=== PATIENT | female | born 1990 | race Caucasian/White ===

== ENCOUNTER → 2018-08-24 | Outpatient (REF) | payer OTHER | LOC: M SFHCLERA 10:33 | PROVIDERS: ATTEND Physician Assistant | DX: J02.9 Acute pharyngitis, unspecified (principal) ==

== ENCOUNTER → 2019-01-07 | Outpatient (REF) | payer OTHER | LOC: M SFHCLERA 16:37 | PROVIDERS: ATTEND Nurse Practitioner Family | DX: R50.9 Fever, unspecified (principal) ==

== ENCOUNTER 2019-09-09 19:05 | Inpatient (IN) | payer OTHER ==
[~2019-09-09] VITALS: Ht 160 cm; Wt 77.4 kg
[2019-09-09 19:27] VITALS: BP 118/74
[2019-09-09] MEDS ORDERED: PROMETHAZINE INJ 25 MG/ML VIAL (J2550) IV ONE (19:45)
[2019-09-09] MEDS ORDERED: BUTORPHANOL 2 MG/ML INJ (J0595) IV PRN (19:45)
[2019-09-09] MEDS ORDERED: miSOPROStol 50 MCG 1/2 TAB (S0191) PO SCH (20:00)
[2019-09-09 20:15] LABS: BASO % 0.3 % (0.0-1.0); EOS # 0.1 10^3/uL (0.0-0.5); EOS % 0.8 % (0.0-3.0); HEMATOCRIT 30.1 % (36.0-47.0); HEMOGLOBIN 9.7 g/dl (12.0-15.5); LYMPH # 2.3 10^3/uL (1.5-5.0); LYMPH % 20.3 % (24.0-44.0); MEAN CORPUSCULAR HEMOGLOBIN 28.1 pg (27.0-33.0); MEAN CORPUSCULAR HGB CONC 32.2 g/dl (32.0-36.5); MEAN CORPUSCULAR VOLUME 87.2 fl (80.0-96.0); MONO % 8.8 % (0.0-5.0); NEUTROPHILS # 7.5 10^3/uL (1.5-8.5); NEUTROPHILS % 67.8 % (36.0-66.0); PLATELET COUNT, AUTOMATED 266 10^3/uL (150-450); RED BLOOD COUNT 3.45 10^6/uL (4.00-5.40); WHITE BLOOD COUNT 11.1 10^3/uL (4.0-10.0)
[2019-09-09 20:40] VITALS: BP 111/62
[2019-09-09] MEDS ORDERED: PRENTAB9 PO (20:51)
[2019-09-09 22:00] VITALS: BP 103/66
--- NOTE | 2019-09-09 22:46 | HPEPDOC ---
Obstetrical History & Physical General Date of Admission September 09, 2019 at 19:05 History of Present Illness Noemi is a 29yo with SIUP at 39w3d by lmp c/w 8wk u/s who presents for scheduled (elective) IOL today. No complaints. No LOF/vaginal bleeding/regular ctx. Feels good movement. Chief Complaint: Induction of labor Information Provided By: Patient Care Care: Good Care Dating Final EDC: September 13, 2019 Final EDC by: LMP, 1st trimester (US) Antepartum Course Diagnos(e)s elevated 1hr glucola (136) with normal 3hr GTT Height (inches): 63 Pre- weight (lbs.): 135 Admission Weight (lbs.): 170 Change in Weight (lbs.): 35 Past Medical History Past Obstetrical History : Past Obstetrical History: Multigravida (03/21/15 uncomplicated 39wk [id number] M, 01/24/18 uncomplicated 39wk [id number] M, 02/2017 sab) [employer] History: No pertinent history Past Medical History Medical History Benign Surgical History: [place] teeth, Other (Laparoscopic ovarian cystectomy x2, breast tissue removal) Family History Significant Family History: No pertinent family hx Social History Marital Status: Family situation: Spouse/partner home Psychosocial History: No pertinent psych hx * Smoker: non-smoker Alcohol: Denies Drugs: denies Imunizations Tdap status: current Influenza Status: current Allergies Coded Allergies: shellfish derived (Verified Allergy, Severe, ANAPHYLAXIS, 09/09/19) Medications Scheduled No.137/Iron/Folic Acd ( Vitamin Tablet) 1 Each Tablet, 1 TAB PO DAILY Physical Examination Physical Examination GENERAL: Alert and oriented times three. ABDOMEN: Gravid and non-tender to touch. FETUS: Is vertex (VTX) by sterile vaginal examination (SVE) EXTREMITIES: No edema of BLE Vital Signs/I&O Vital Signs Date Time Temp Pulse Resp B/P (MAP) Pulse Ox O2 Delivery O2 Flow Rate FiO2 09/09/19 20:40 94 111/62 (78) 09/09/19 19:27 98.1 16 Laboratory Data 24H LABS Laboratory Tests 2 09/09/19 19:11: Serology Scanned Report Hepatitis B Testing 09/09/19 20:05: Immature Granulocyte % (Auto) 2.0, Neutrophils (%) (Auto) 67.8H, Lymphocytes (%) (Auto) 20.3L, Monocytes (%) (Auto) 8.8H, Eosinophils (%) (Auto) 0.8, Basophils (%) (Auto) 0.3, Neutrophils # (Auto) 7.5, Lymphocytes # (Auto) 2.3, Monocytes # (Auto) 1.0H, Eosinophils # (Auto) 0.1, Basophils # (Auto) 0.0, Nucleated Red Blood Cells % (auto) 0.0 CBC/BMP Laboratory Tests 09/09/19 20:05 Pertinent Laboratoy Data Blood Type: O+ RBC Antibody Screen: Negative HIV: Negative Hepatitis B: Negative Hepatitis C: Unknown Rapid Plasma Reagin: Nonreactive Rubella: Immune Varicella: Immune Chlamydia/Gonorrhea: Negative Group B Streptococcus: Negative Quad Screen Test: Negative Cystic Fibrosis: Negative Glucose Tolerance Test: 136 (93/139/91/85) Anatomy Ultrasound Ultrasound Date: Apr 26, 2019 Placenta Location: Posterior Normal Anatomy: Yes Placenta Previa: No Steroid Therapy Steroid Therapy: No Vaginal Examination Dilation: 3 cm Effacement: 50% Station: -3 Cervical Consistency: Medium Cervical Position: Middle Presentation: Cephalic presentation Assessment Heart Rate (FHR): 145 Variability: Moderate Accelerations: Positive Decelerations: None Tocometer Contractions: Yes Frequency: irregular Strength: palpated as mild Assessment/Plan Assessment Noemi is a 29yo with SIUP at 39w3d by lmp c/w 8wk u/s who presents for scheduled (elective) IOL today. Vitals wnl, benign exam. SCE /-3, no ctx pattern. Cat I FHRT. Cephalic by SCE. GBS neg. PMhx/PNC significant for: elevated 1hr glucola (136) with normal 3hr GTT Plan Admit and orient. Proof Tester and consent. Diet: clear liquids Group B Streptococcus (GBS) negative Labs and intravenous (IV) per unit protocol. Counseled on cytotec, Pitocin and induction of labor (IOL). Saline lock IV for now Cytotec 50mcg PO Q4hr prn until good ctx pattern obtained with discomfort Candidate for epidural in active labor, IV stadol/phenergan in latent labor if desired Anticipate normal spontaneous delivery () MD Adelaide Huynh Katrina D MD September 09, 2019 22:46
[2019-09-10] VITALS (31 sets, daily range): BP systolic 98–139; BP diastolic 55–93
[2019-09-10] MEDS ORDERED: FENTANYL 2MCG/ML ROPIVACAINE 0.2% IN 0.9% NACL 100ML IVBAG As Ordered ONE (02:33)
[2019-09-10] MEDS ORDERED: OXYTOCIN 30 UNITS IN 0.9% NaCl 500ML IV BAG (J2590) As Ordered ONE (02:34)
[2019-09-10] MEDS ORDERED: EPIDURAL COMMENT XX SCH (04:15)
[2019-09-10] MEDS ORDERED: EPIDURAL/PCA KEYS XX PRN (04:15)
[2019-09-10] MEDS ORDERED: REFRIGERATOR IV KEYS XX PRN (04:15)
[2019-09-10] MEDS ORDERED: diphenhydrAMINE 50MG/ML VIAL (J1200) IV PRN (04:15)
[2019-09-10] MEDS ORDERED: ONDANSETRON 4MG/2ML VIAL IV PRN (04:15)
[2019-09-10] MEDS ORDERED: LACTATED RINGER'S 1000 ML IV PRN (04:15)
[2019-09-10] MEDS ORDERED: FENTANYL/ROPIVACAINE/NACL BAG 100 ML EPIDURAL SCH (04:15)
[2019-09-10] MEDS ORDERED: ePHEDrine SULFATE 25 MG/5 ML(5MG/ML) SYRINGE IV PRN (04:15)
[2019-09-10] MEDS ORDERED: NALOXONE INJ 0.4MG/1ML VIAL (J2310 PER 1MG) IV PRN (04:15)
[2019-09-10] MEDS ORDERED: OXYTOCIN DRIP 30 UNITS in IV 1 EA IV SCH (04:52)
--- NOTE | 2019-09-10 04:58 | DNPDOC ---
[facility] Delivery Note Delivery Note DATE OF DELIVERY: 10 Sep 2019 PREDELIVERY DIAGNOSIS: 39w4d social IOL POST DELIVERY DIAGNOSIS: Delivered. PROCEDURE: Spontaneous vaginal delivery ROLL UP HELPER: Dr. Nidia Bryson MD ANESTHESIA: epidural ESTIMATED BLOOD LOSS: 200 mL. FINDINGS: (weight pending at time of note writing, see infant documentation) Female , Score 9/9, nuchal cord times 1 DELIVERY SUMMARY: Noemi is a 29yo [id number] s/p uncomplicated at 0436 on 09/10/19 after undergoing social IOL at 39w4d. She received one dose of oral cytotec and advanced into labor with no further augmentation. She received an epidural, had SROM with meconium stained fluid at 9cm and progressed to C/C/+2 at which point she began pushing. With one set of pushes, infant's head delivered OA, restituted EH. One nuchal cord reduced. Right anterior shoulder delivered with ease followed by posterior shoulder (there was right compound hand), then remainder of body delivered to maternal abdomen where infant was dried and stimulated; nose and mouth suctioned with bulb suction, strong, lusty cry, apgars 9/9. At 2 minutes of life, cord clamped x2 and cut by FOB. Cord blood collected at this time for MBT O pos. With uterine massage and traction on the cord, placenta delivered spontaneously and intact with 3 vessel centrally inserted cord. Pitocin bolus started with delivery of placenta. Fundus then firm at u-2cm with hemostasis noted. Upon inspection of vagina and perineum, small non-bleeding bilateral abrasions noted which were reapproximated with 4-0 vicryl suture using figure of 8's. Complete hemostasis noted. All counts correct x2. Mom and infant were doing well when I left the room. MD Adelaide Huynh Katrina D MD September 10, 2019 04:58
[2019-09-10] MEDS ORDERED: RHOGAM 300 MCG (1500 IU) INJ (J2790) IM SCH (05:00)
[2019-09-10] MEDS ORDERED: ACETAMINOPHEN 500 MG TAB PO PRN (05:00)
[2019-09-10] MEDS ORDERED: DIBUCAINE 1% OINTMENT 30GM TOP PRN (05:00)
[2019-09-10] MEDS ORDERED: IBUPROFEN 600 MG TAB PO PRN (05:00)
[2019-09-10] MEDS ORDERED: MEASLES,MUMPS,RUBELLA VACCINE INJ (MMR-II) (90707) SC SCH (05:00)
[2019-09-10] MEDS ORDERED: DOCUSATE SODIUM 100 MG CAP PO PRN (05:00)
[2019-09-10] MEDS ORDERED: ACETAMINOPHEN TAB 650MG DOSE (2X325MG) PO PRN (05:00)
[2019-09-10] MEDS: IBUPROFEN 800 MG TAB PO PRN ×2 (07:02→14:29)
[2019-09-10] MEDS: PRENATAL VITAMINS CHEWABLE TABLET PO SCH (09:30)
[2019-09-11] MEDS: IBUPROFEN 800 MG TAB PO PRN ×2 (00:18→15:36)
[2019-09-11 06:28] VITALS: BP 119/70
--- NOTE | 2019-09-11 08:19 | IPNPDOC ---
Progress Note Date of Service: September 11, 2019 Day#: 1 Progress Note SUBJECT: patient is a 29 yo s/p , PPD #1. Patient without concerns to day. She has been ambulating, voiding spontaneously without issue and tolerating regular diet. Breast feeding without issue. Reports lochia is like a normal period. plans on using norqd for contraceptive. OBJECTIVE: VITAL SIGNS: Within normal limits, afebrile. Alert and oriented times three. Abdomen: Fundus firm at U-2. Soft, NTTP. LE: no edema/erythema/tenderness A/p ppd #1, doing well. routine ppc. d/c home today. le, DO VS, I&O, 24H, Fishbone Vital Signs/I&O Vital Signs Date Time Temp Pulse Resp B/P (MAP) Pulse Ox O2 Delivery O2 Flow Rate FiO2 09/11/19 06:28 97.8 94 20 119/70 (86) 09/10/19 18:00 96 Room Air I&O- Last 24 Hours up to 6 AM 09/11/19 06:00 Intake Total 500 ml Output Total 800 ml Balance -300 ml ROZ GRANT DO September 11, 2019 08:19
--- NOTE | 2019-09-11 08:20 | OBDS ---
[facility] Obstetrical Discharge Sum. Obstetrical Discharge Summary : 4 Term: 3 Pre-term: 0 Abortions: 1 Livin VDRL: Non-Reactive Rh: Positive Rubella: Immune Infant Sex: Female Infant Weight: pounds (7), ounces (9) Anesthesia: Regional Anesthesia A/P, Post Course List any complications Admission diagnosis: Gravid at 39+3wks Discharge diagnosis: () Condition at Discharge: stable Discharge Instructions: Home Activity: as tolerated Diet: regular Medications: filled at [facility] Follow-up: 6-8wks Hospital course: Patient admitted for elected induction of labor at 39+3wks. Patient progressed to have a spontaneous vaginal delivery. course uncomplicated and patient discharged home on day #1. ROZ GRANT DO September 10, 2019 21:57
[2019-09-11] MEDS: PRENATAL VITAMINS CHEWABLE TABLET PO SCH (08:34)
[2019-09-11] MEDS ORDERED: IBUP80TA PO (13:18)
[2019-09-11] MEDS ORDERED: ACET-683 PO (13:18)
== END 2019-09-11 20:20 | disposition home or self-care (01) | DRG 807 ==
LOC: M LDI 19:05 → M OBS 09-10 09:00
PROVIDERS: ADMIT Obstetrics & Gynecology; ATTEND Obstetrics & Gynecology
PROC: 3E0P7GC Introduction of Other Therapeutic Substance into Female Reproductive, Via Natural or Artificial Opening (ICD-10-PCS; 2019-09-09)
PROC: 10E0XZZ Delivery of Products of Conception, External Approach (ICD-10-PCS; principal; 2019-09-10)
DX: O32.6XX0 Maternal care for compound presentation, not applicable or unspecified (principal); Z37.0 Single live birth; Z3A.39 39 weeks gestation of pregnancy; O69.81X0 Labor and delivery complicated by cord around neck, without compression, not applicable or unspecified